=== PATIENT | male | born 1980 | race African-American/Black ===

== ENCOUNTER 2017-12-02 12:25 | Emergency (ER) | payer OTHER ==
[~2017-12-02] VITALS: Ht 180.3 cm; Wt 74.0 kg
[2017-12-02] MEDS ORDERED: MOTRIN400 MG PO (15:17)
[2017-12-02 15:25] VITALS: BP 131/74
== END 2017-12-02 15:25 | disposition home or self-care (01) | DRG 552 ==
LOC: ED 12:25
DX: M62.830 Muscle spasm of back (principal); M62.838 Other muscle spasm; S70.01XA Contusion of right hip, initial encounter; V89.2XXA Person injured in unspecified motor-vehicle accident, traffic, initial encounter

== ENCOUNTER 2018-07-31 17:15 | Emergency (ER) | payer SELFPAY ==
[~2018-07-31] VITALS: Ht 180.3 cm; Wt 72.7 kg
[~2018-07-31 17:15] MED LIST: MOTRIN400 MG PO
[2018-07-31 18:50] VITALS: BP 144/89
== END 2018-07-31 18:50 | disposition home or self-care (01) | DRG 914 ==
LOC: ED 17:15
DX: S51.041A Puncture wound with foreign body of right elbow, initial encounter (principal); R50.9 Fever, unspecified; W34.010A Accidental discharge of airgun, initial encounter; Y93.89 Activity, other specified; Y92.007 Garden or yard of unspecified non-institutional (private) residence as the place of occurrence of the external cause

== ENCOUNTER 2019-06-18 11:05 | Emergency (ER) | payer SELFPAY ==
[~2019-06-18] VITALS: Ht 180.3 cm; Wt 75.0 kg
[2019-06-18 13:55] VITALS: BP 135/80
== END 2019-06-18 13:55 | disposition home or self-care (01) | DRG 563 ==
LOC: ED 11:05
DX: S39.012A Strain of muscle, fascia and tendon of lower back, initial encounter (principal); M79.18 Myalgia, other site; F17.290 Nicotine dependence, other tobacco product, uncomplicated; Y35.833A Legal intervention involving a conducted energy device, suspect injured, initial encounter

== ENCOUNTER 2021-07-13 17:03 | Emergency (ER) | payer BC ==
[~2021-07-13] VITALS: Ht 180.3 cm; Wt 73.0 kg
[2021-07-13 18:36] LABS: HEMATOCRIT 43.3 % (39.0-50.0); HEMOGLOBIN 14.5 g/dl (14.0-18.0); IMMATURE GRANULOCYTES 0.2 % (0.0-5.0); MEAN CELL VOLUME 91.2 fL CALC (80.0-100.0); MEAN CORPUSCULAR HGB 30.5 pG CALC (26.0-32.0); MEAN CORPUSCULAR HGB CONC 33.5 g/dL CAL (32.0-36.0); NEUT# 2.3 thou/uL (1.82-7.42); RED BLOOD COUNT 4.75 mill/uL (4.70-6.10); RED CELL DISTRI WIDTH 14.2 % (11.5-15.5)
[2021-07-13 18:48] LABS: ALBUMIN 4.1 g/dL (3.2-5.0); ALKALINE PHOSPHATASE 53 u/l (38-126); ANION GAP 10 (6-22 (CALC)); BILIRUBIN, TOTAL 0.4 mg/dL (0.0-1.4); BUN 9 mg/dL (9-20); BUN/CREATININE RATIO 9 (12-20 (CALC)); CARBON DIOXIDE 26 mmol/l (22-30); CHLORIDE 106 mmol/l (95-108); GFR > 60 ML/MIN (>=60 (CALC)); GFR FOR AFR.AMER. > 60 ML/MIN (>=60 (CALC)); LIPASE 130 u/l (23-300); SGOT/AST 34 u/l (17-59); SODIUM 138 mmol/l (137-146); TOTAL PROTEIN 7.2 g/dL (6.3-8.2)
[2021-07-13 19:46] LABS: URINE BILIRUBIN - DIPSTICK NEGATIVE (NEGATIVE); URINE BLOOD DIPSTICK TRACE-INTACT (NEGATIVE); URINE COLOR YELLOW; URINE GLUCOSE - DIPSTICK NEGATIVE (NEGATIVE); URINE KETONE TRACE mg/dL (NEGATIVE); URINE LEUK ESTERASE TRACE (NEGATIVE); URINE PH 6.5 (4.5-8.0); URINE PROTEIN - DIPSTICK NEGATIVE (NEG-TRACE); URINE SPECIFIC GRAVITY 1.025; URINE UROBILINOGEN - DIPSTICK 0.2 E.U./dL (0.2)
[2021-07-13 19:49] LABS: URINE NITRITE - DIPSTICK NEGATIVE (Negative)
[2021-07-13] MEDS ORDERED: IBUPROFEN600 MG PO (19:58)
[2021-07-13] MEDS ORDERED: FLEXERIL5 M1 PO (19:58)
[2021-07-13 20:07] VITALS: BP 126/70
== END 2021-07-13 20:16 | disposition home or self-care (01) | DRG 552 ==
LOC: ED 17:03
PROVIDERS: Family Medicine
DX: M54.50 Low back pain, unspecified (principal); F17.210 Nicotine dependence, cigarettes, uncomplicated
CPT/HCPCS: Q9967